=== PATIENT | female | born 1980 | race African-American/Black ===

== ENCOUNTER 2020-10-21 17:18 | Emergency (ER) | payer BC ==
[2020-10-21 17:55] LABS: #Eosinphils 0.1 thou/uL (0.0-0.7); #Lymphocytes 2.4 thou/uL (1.20-3.40); #Monocytes 0.6 thou/uL (0.11-0.59); #Neutrophils 5.1 thou/uL (1.40-6.50); %Basophils 0.4 % (0.0-1.0); %Eosinophils 1.4 % (0.0-10.0); %Lymphocytes 29.2 % (21.0-51.0); %Monocytes 7.1 % (0.0-10.0); %Neutrophils 61.9 % (42.0-75.0); Mean Corpuscular HGB CONC 33.7 g/dL (32.0-36.0); Mean Corpuscular Hemoglobin 30.6 pg (27.0-31.0); Mean Corpuscular Volume 90.9 fL (78.0-98.0); Mean Platelet Volume 7.4 fL (7.4-10.4); Platelet Count 493 thou/uL (130-400); RBC Distribution Width 11.5 % (11.5-14.5); Red Blood Cell (RBC) Count 4.58 mill/uL (4.20-5.40); White Blood Cell (WBC) Count 8.2 thou/uL (4.8-10.8)
[2020-10-21 18:03] LABS: Bilirubin Negative (Negative); Blood, Urine Trace (Negative); Clarity Clear (Clear); Glucose, Urine (Dipstick) Normal (Negative); Ketone, Urine Negative (Negative); Leukocyte 500 Leu/uL (Negative); Nitrite Negative (Negative); Protein, Urine (Dipstick) Negative (Neg-Trace); RBC/HPF 0-3 HPF (0-3); Specific Gravity, Urine 1.003 (1.002-1.036); Squamous Epithelial 0-3 HPF (0-3); Urobilinogen Normal mg/dL (Less than 2); WBC/HPF 21-50 HPF (0-3)
[2020-10-21 18:05] LABS: Bacteria/HPF 1+ HPF (None Seen)
[2020-10-21] MEDS ORDERED: Ketorolac Tromethamine 30 MG/ML VIAL ONE (18:06)
[2020-10-21 18:25] LABS: ALT (SGPT) 12 U/L (8-55); AST (SGOT) 14 U/L (5-34); Albumin 4.5 g/dL (3.5-5.0); Alkaline Phosphatase 78 U/L (40-110); Anion Gap 17 mmol/L (10-20); BUN (Urea Nitrogen) 11 mg/dL (7.0-18.7); Bilirubin, Total 0.8 mg/dL (0.2-1.2); Calc. Creatinine Clearance 0 mL/min (70-130); Calcium 9.8 mg/dL (7.8-10.44); Carbon Dioxide 20 mmol/L (22-29); Chloride 103 mmol/L (98-107); Globulin 3.3 g/dL (2.4-3.5); Glucose 93 mg/dL (70-105); Potassium 4.1 mmol/L (3.5-5.1); Protein, Total 7.8 g/dL (6.0-8.3); Sodium 136 mmol/L (136-145)
[2020-10-21 18:53] LABS: BHCG - Serum Negative (NEGATIVE); Pregs Control Background? CLEAR/WHITE (CLR/WHITE); Pregs Control Bar Appear? YES (CONTROL BAR)
== END 2020-10-21 18:40 | disposition home or self-care (01) ==
LOC: ERS 17:18
DX: N39.0 Urinary tract infection, site not specified (principal); B37.9 Candidiasis, unspecified; G35 Multiple sclerosis; Z79.899 Other long term (current) drug therapy
CPT/HCPCS: 36415; 80053; 81003; 81015; 84703; 85025; 87077; 87086; 87186; 96372; 99283; J1885

== ENCOUNTER 2020-11-13 15:41 | Observation (INO) | payer BC ==
[2020-11-13 18:02] VITALS: BMI 36.9
[2020-11-13] MEDS ORDERED: Acetaminophen 325 MG TAB PO PRN (18:35)
[2020-11-13] MEDS ORDERED: Calcium Carbonate 500 MG ChewTAB PO PRN (18:35)
[2020-11-13] MEDS ORDERED: Guaifenesin DM 100-10/5 ML UDCUP PO PRN (18:35)
[2020-11-13] MEDS ORDERED: Ondansetron ODT 4 MG TAB PO PRN (18:35)
[2020-11-13] MEDS ORDERED: Enoxaparin Sodium 40 MG/0.4 ML SYRINGE SC SCH (18:45)
[2020-11-13] MEDS: Ibuprofen 800 MG TAB PO PRN (20:49)
[2020-11-13] MEDS ORDERED: hydrOXYzine 25 MG TAB PO PRN (22:20)
[2020-11-13] MEDS ORDERED: tiZANidine HCl 4 MG TAB PO SCH (22:30)
[2020-11-13] MEDS: Benzonatate 100 MG CAP PO PRN (22:56)
[2020-11-14] MEDS: Amlodipine 5 MG TAB PO SCH ×2 (02:17→08:30)
[2020-11-14 06:26] LABS: Anion Gap 14 mmol/L (10-20); BUN (Urea Nitrogen) 10 mg/dL (7.0-18.7); Calc. Creatinine Clearance 175 mL/min (70-130); Calcium 9.1 mg/dL (7.8-10.44); Carbon Dioxide 23 mmol/L (22-29); Chloride 106 mmol/L (98-107); Glucose 177 mg/dL (70-105); Potassium 3.8 mmol/L (3.5-5.1); Sodium 139 mmol/L (136-145)
[2020-11-14] MEDS ORDERED: Dexamethasone 6 MG in Sodium Chloride 0.9% 50 ML IVPB SCH ×2 (07:00→09:00)
[2020-11-14] MEDS ORDERED: Enoxaparin Sodium 40 MG/0.4 ML SYRINGE SC SCH (07:00)
[2020-11-14] MEDS ORDERED: Dexamethasone 4 MG TAB PO SCH (08:00)
[2020-11-14] MEDS: Benzonatate 100 MG CAP PO PRN (08:30)
[2020-11-14] MEDS: Ibuprofen 800 MG TAB PO PRN (08:31)
[2020-11-14] MEDS ORDERED: Metoprolol Tartrate 25 MG TAB PO SCH (09:00)
[2020-11-14] MEDS ORDERED: tiZANidine HCl 4 MG TAB PO SCH (09:00)
[2020-11-14] MEDS ORDERED: Gabapentin 100 MG CAP PO SCH (09:00)
[2020-11-14 12:22] VITALS: BP 128/77; TEMP 98.3
[2020-11-14] MEDS ORDERED: FLU VACC QS2020-21(6MOS UP)/PF 60 MCG/0.5 ML SYRINGE IM ONE (18:30)
== END 2020-11-14 12:52 | disposition home or self-care (01) ==
LOC: T4-A 16:46
PROVIDERS: ADMIT Student in an Organized Health Care Education/Training Program; ATTEND Family Medicine
DX: U07.1 COVID-19 (principal); J12.82 Pneumonia due to coronavirus disease 2019; I10 Essential (primary) hypertension; G35 Multiple sclerosis; Z79.899 Other long term (current) drug therapy
CPT/HCPCS: 36415; 80048; J1650; J8540

== ENCOUNTER 2020-11-15 20:13 | Inpatient (IN) | payer BC ==
[~2020-11-15 20:13] MED LIST: Iopamidol 370 76% 100 ML VIAL ONE
[2020-11-15] MEDS ORDERED: Albuterol 200 PUFF (6.7GM INHALER) ONE (20:43)
[2020-11-15] MEDS ORDERED: Acetaminophen 500 MG TAB ONE (20:52)
[2020-11-15] MEDS ORDERED: Dexamethasone 4 mg/ml Vial ONE (20:52)
[2020-11-15 21:18] LABS: #Lymphocytes 0.8 thou/uL (1.20-3.40); #Monocytes 0.6 thou/uL (0.11-0.59); %Basophils 0.1 % (0.0-1.0); %Eosinophils 0.1 % (0.0-10.0); %Lymphocytes 8.4 % (21.0-51.0); %Monocytes 6.7 % (0.0-10.0); %Neutrophils 84.7 % (42.0-75.0); BHCG - Serum Negative (NEGATIVE); Hemoglobin 12.8 g/dL (12.0-16.0); Mean Corpuscular Hemoglobin 31.1 pg (27.0-31.0); Mean Corpuscular Volume 91.3 fL (78.0-98.0); Mean Platelet Volume 7.5 fL (7.4-10.4); Platelet Count 309 thou/uL (130-400); Pregs Control Background? CLEAR/WHITE (CLR/WHITE); Pregs Control Bar Appear? YES (CONTROL BAR); RBC Distribution Width 11.7 % (11.5-14.5); Red Blood Cell (RBC) Count 4.11 mill/uL (4.20-5.40); White Blood Cell (WBC) Count 9.4 thou/uL (4.8-10.8)
[2020-11-15 21:42] LABS: ALT (SGPT) 70 U/L (8-55); AST (SGOT) 45 U/L (5-34); Albumin 3.8 g/dL (3.5-5.0); Alkaline Phosphatase 93 U/L (40-110); Anion Gap 14 mmol/L (10-20); BUN (Urea Nitrogen) 14 mg/dL (7.0-18.7); Bilirubin, Total 0.6 mg/dL (0.2-1.2); Calc. Creatinine Clearance 0 mL/min (70-130); Calcium 8.9 mg/dL (7.8-10.44); Carbon Dioxide 25 mmol/L (22-29); Chloride 104 mmol/L (98-107); Globulin 3.5 g/dL (2.4-3.5); Glucose 103 mg/dL (70-105); Potassium 3.3 mmol/L (3.5-5.1); Protein, Total 7.3 g/dL (6.0-8.3); Sodium 140 mmol/L (136-145)
[2020-11-16 00:10] LABS: Lactic Acid 1.4 mmol/L (0.5-2.2)
[2020-11-16] MEDS ORDERED: Ondansetron ODT 4 MG TAB PO PRN (02:36)
[2020-11-16] MEDS ORDERED: GUAIFENESIN SF SOLN 200 MG/10 ML UDCUP PO PRN (02:41)
[2020-11-16] MEDS ORDERED: Ibuprofen 800 MG TAB PO PRN (02:41)
[2020-11-16] MEDS ORDERED: Benzonatate 100 MG CAP PO PRN (02:41)
[2020-11-16] MEDS ORDERED: Lactated Ringer's 1,000 ML IV SCH (03:00)
[2020-11-16] MEDS ORDERED: Acetaminophen 325 MG TAB ONE ×3 (05:01→15:41)
[2020-11-16] MEDS: Acetaminophen 325 MG TAB PO PRN ×3 (05:04→19:56)
[2020-11-16 05:27] LABS: Mean Corpuscular HGB CONC 33.8 g/dL (32.0-36.0); Mean Corpuscular Hemoglobin 30.6 pg (27.0-31.0); Mean Corpuscular Volume 90.7 fL (78.0-98.0); Mean Platelet Volume 7.2 fL (7.4-10.4); Platelet Count 314 thou/uL (130-400); RBC Distribution Width 11.7 % (11.5-14.5); Red Blood Cell (RBC) Count 3.91 mill/uL (4.20-5.40); White Blood Cell (WBC) Count 7.4 thou/uL (4.8-10.8)
[2020-11-16 05:35] LABS: ALT (SGPT) 59 U/L (8-55); AST (SGOT) 37 U/L (5-34); Albumin 3.6 g/dL (3.5-5.0); Alkaline Phosphatase 85 U/L (40-110); Anion Gap 14 mmol/L (10-20); BUN (Urea Nitrogen) 10 mg/dL (7.0-18.7); Bilirubin, Total 0.6 mg/dL (0.2-1.2); Calc. Creatinine Clearance 0 mL/min (70-130); Calcium 8.4 mg/dL (7.8-10.44); Carbon Dioxide 23 mmol/L (22-29); Chloride 107 mmol/L (98-107); Globulin 3.2 g/dL (2.4-3.5); Glucose 157 mg/dL (70-105); Potassium 3.9 mmol/L (3.5-5.1); Protein, Total 6.8 g/dL (6.0-8.3); Sodium 140 mmol/L (136-145)
[2020-11-16 05:47] LABS: Band 27 % (5-11); Lymphocytes 7 % (21-51); MDiff Complete? YES; Monocytes 2 % (0-10); Neutrophil 64 % (42-75); Platelet Morphology Comment Appears Adequate
[2020-11-16] MEDS ORDERED: Dexamethasone 4 mg/ml Vial SLOW IVP SCH ×2 (09:00→10:00)
[2020-11-16] MEDS ORDERED: Enoxaparin Sodium 40 MG/0.4 ML SYRINGE ONE (09:53)
[2020-11-16] MEDS ORDERED: Dexamethasone 4 mg/ml Vial ONE (09:53)
[2020-11-16] MEDS ORDERED: Amlodipine 5 MG TAB ONE (10:47)
[2020-11-16] MEDS ORDERED: Metoprolol Tartrate 25 MG TAB ONE (10:47)
[2020-11-16] MEDS: Amlodipine 5 MG TAB PO SCH (11:06)
[2020-11-16] MEDS: Metoprolol Tartrate 25 MG TAB PO SCH ×2 (11:07→19:56)
[2020-11-16] MEDS: Citalopram 20 MG TAB PO SCH (11:07)
[2020-11-16] MEDS: Enoxaparin Sodium 40 MG/0.4 ML SYRINGE SC SCH ×2 (11:08→19:56)
[2020-11-16] MEDS ORDERED: Ondansetron PF 4 MG/2 ML Vial ONE (14:04)
[2020-11-16] MEDS: Ondansetron PF 4 MG/2 ML Vial IVP PRN (14:16)
[2020-11-16] MEDS ORDERED: Docusate 100 MG CAP PO SCH (15:15)
[2020-11-16] MEDS ORDERED: Polyethylene Glycol 3350 17 GM Packet PO SCH (15:15)
[2020-11-16] MEDS ORDERED: Dexamethasone 1 MG TAB PO SCH (17:00)
[2020-11-16] MEDS ORDERED: Dexamethasone 4 MG TAB ONE (17:14)
[2020-11-16 19:10] VITALS: BMI 37.2
[2020-11-16] MEDS: Docusate 100 MG CAP PO SCH (19:32)
[2020-11-16] MEDS: Dexamethasone 4 MG TAB PO SCH (19:34)
[2020-11-16] MEDS: Gabapentin 300 MG CAP PO SCH (19:56)
[2020-11-16] MEDS: tiZANidine HCl 4 MG TAB PO SCH (19:56)
[2020-11-17] MEDS: Acetaminophen 325 MG TAB PO PRN (05:07)
[2020-11-17 06:41] LABS: #Lymphocytes 0.7 thou/uL (1.20-3.40); #Monocytes 0.6 thou/uL (0.11-0.59); #Neutrophils 7.1 thou/uL (1.40-6.50); %Eosinophils 0.1 % (0.0-10.0); %Lymphocytes 8.8 % (21.0-51.0); %Monocytes 7.4 % (0.0-10.0); %Neutrophils 83.8 % (42.0-75.0); Hemoglobin 12.7 g/dL (12.0-16.0); Mean Corpuscular HGB CONC 33.3 g/dL (32.0-36.0); Mean Corpuscular Hemoglobin 30.4 pg (27.0-31.0); Mean Corpuscular Volume 91.3 fL (78.0-98.0); Mean Platelet Volume 7.7 fL (7.4-10.4); Platelet Count 344 thou/uL (130-400); RBC Distribution Width 11.5 % (11.5-14.5); Red Blood Cell (RBC) Count 4.17 mill/uL (4.20-5.40); White Blood Cell (WBC) Count 8.5 thou/uL (4.8-10.8)
[2020-11-17 07:16] LABS: ALT (SGPT) 58 U/L (8-55); AST (SGOT) 44 U/L (5-34); Albumin 3.5 g/dL (3.5-5.0); Alkaline Phosphatase 89 U/L (40-110); Anion Gap 19 mmol/L (10-20); BUN (Urea Nitrogen) 13 mg/dL (7.0-18.7); Bilirubin, Total 0.6 mg/dL (0.2-1.2); Calc. Creatinine Clearance 172 mL/min (70-130); Calcium 8.8 mg/dL (7.8-10.44); Carbon Dioxide 21 mmol/L (22-29); Chloride 100 mmol/L (98-107); Globulin 3.9 g/dL (2.4-3.5); Glucose 127 mg/dL (70-105); Potassium 4.2 mmol/L (3.5-5.1); Protein, Total 7.4 g/dL (6.0-8.3); Sodium 136 mmol/L (136-145)
[2020-11-17] MEDS ORDERED: Simethicone Chewable 80 MG TAB PO PRN (08:11)
[2020-11-17] MEDS: Dexamethasone 4 MG TAB PO SCH ×2 (08:44→17:00)
[2020-11-17] MEDS: Enoxaparin Sodium 40 MG/0.4 ML SYRINGE SC SCH ×2 (08:45→21:11)
[2020-11-17] MEDS: Gabapentin 300 MG CAP PO SCH ×2 (08:45→21:11)
[2020-11-17] MEDS: Docusate 100 MG CAP PO SCH ×3 (08:45→21:17)
[2020-11-17] MEDS: Amlodipine 5 MG TAB PO SCH (08:45)
[2020-11-17] MEDS: Citalopram 20 MG TAB PO SCH (08:45)
[2020-11-17] MEDS: tiZANidine HCl 4 MG TAB PO SCH ×3 (08:46→21:11)
[2020-11-17] MEDS: Ondansetron PF 4 MG/2 ML Vial IVP PRN (08:46)
[2020-11-17] MEDS: Polyethylene Glycol 3350 17 GM Packet PO SCH (08:46)
[2020-11-17] MEDS: Metoprolol Tartrate 25 MG TAB PO SCH ×2 (08:46→21:12)
[2020-11-18] MEDS: Acetaminophen 325 MG TAB PO PRN (01:50)
[2020-11-18 07:20] LABS: #Lymphocytes 0.6 thou/uL (1.20-3.40); #Monocytes 0.9 thou/uL (0.11-0.59); #Neutrophils 5.7 thou/uL (1.40-6.50); %Basophils 0.3 % (0.0-1.0); %Eosinophils 0.1 % (0.0-10.0); %Lymphocytes 8.9 % (21.0-51.0); %Monocytes 12.1 % (0.0-10.0); %Neutrophils 78.7 % (42.0-75.0); Hemoglobin 12.4 g/dL (12.0-16.0); Mean Corpuscular Volume 91.2 fL (78.0-98.0); Mean Platelet Volume 7.5 fL (7.4-10.4); Platelet Count 377 thou/uL (130-400); RBC Distribution Width 11.6 % (11.5-14.5); White Blood Cell (WBC) Count 7.2 thou/uL (4.8-10.8)
[2020-11-18 07:49] LABS: ALT (SGPT) 41 U/L (8-55); AST (SGOT) 27 U/L (5-34); Albumin 3.3 g/dL (3.5-5.0); Alkaline Phosphatase 84 U/L (40-110); Anion Gap 15 mmol/L (10-20); BUN (Urea Nitrogen) 16 mg/dL (7.0-18.7); Bilirubin, Total 0.7 mg/dL (0.2-1.2); Calc. Creatinine Clearance 170 mL/min (70-130); Calcium 8.8 mg/dL (7.8-10.44); Carbon Dioxide 26 mmol/L (22-29); Chloride 99 mmol/L (98-107); Globulin 3.5 g/dL (2.4-3.5); Glucose 144 mg/dL (70-105); Protein, Total 6.8 g/dL (6.0-8.3); Sodium 136 mmol/L (136-145)
[2020-11-18] MEDS: Amlodipine 5 MG TAB PO SCH (08:50)
[2020-11-18] MEDS: tiZANidine HCl 4 MG TAB PO SCH ×3 (08:50→20:41)
[2020-11-18] MEDS: Metoprolol Tartrate 25 MG TAB PO SCH ×2 (08:51→20:42)
[2020-11-18] MEDS: Gabapentin 300 MG CAP PO SCH ×2 (08:51→20:41)
[2020-11-18] MEDS: Dexamethasone 4 MG TAB PO SCH ×2 (08:51→16:34)
[2020-11-18] MEDS: Docusate 100 MG CAP PO SCH ×2 (08:51→20:41)
[2020-11-18] MEDS: Citalopram 20 MG TAB PO SCH (08:51)
[2020-11-18] MEDS: Enoxaparin Sodium 40 MG/0.4 ML SYRINGE SC SCH (08:52)
[2020-11-18] MEDS: Polyethylene Glycol 3350 17 GM Packet PO SCH ×2 (08:52→09:12)
[2020-11-19] MEDS: Ondansetron PF 4 MG/2 ML Vial IVP PRN (05:08)
[2020-11-19 07:05] LABS: ALT (SGPT) 37 U/L (8-55); AST (SGOT) 21 U/L (5-34); Albumin 3.6 g/dL (3.5-5.0); Alkaline Phosphatase 90 U/L (40-110); Anion Gap 16 mmol/L (10-20); BUN (Urea Nitrogen) 14 mg/dL (7.0-18.7); Bilirubin, Total 0.7 mg/dL (0.2-1.2); Calc. Creatinine Clearance 197 mL/min (70-130); Calcium 9.1 mg/dL (7.8-10.44); Carbon Dioxide 26 mmol/L (22-29); Chloride 99 mmol/L (98-107); Globulin 3.5 g/dL (2.4-3.5); Glucose 151 mg/dL (70-105); Protein, Total 7.1 g/dL (6.0-8.3); Sodium 137 mmol/L (136-145)
[2020-11-19 08:21] LABS: Band 11 % (5-11); Hemoglobin 13.3 g/dL (12.0-16.0); Lymphocytes 15 % (21-51); MDiff Complete? YES; Mean Corpuscular HGB CONC 34.3 g/dL (32.0-36.0); Mean Corpuscular Hemoglobin 31.2 pg (27.0-31.0); Mean Platelet Volume 7.2 fL (7.4-10.4); Metamyelocyte 1 % (0-0); Monocytes 12 % (0-10); Neutrophil 61 % (42-75); Platelet Count 449 thou/uL (130-400); RBC Distribution Width 11.5 % (11.5-14.5); Red Blood Cell (RBC) Count 4.26 mill/uL (4.20-5.40); White Blood Cell (WBC) Count 7.4 thou/uL (4.8-10.8)
[2020-11-19] MEDS: Polyethylene Glycol 3350 17 GM Packet PO SCH (08:22)
[2020-11-19] MEDS: Citalopram 20 MG TAB PO SCH (08:22)
[2020-11-19] MEDS: Dexamethasone 4 MG TAB PO SCH ×2 (08:22→16:30)
[2020-11-19] MEDS: Amlodipine 5 MG TAB PO SCH (08:22)
[2020-11-19] MEDS: tiZANidine HCl 4 MG TAB PO SCH ×3 (08:22→20:13)
[2020-11-19] MEDS: Metoprolol Tartrate 25 MG TAB PO SCH ×2 (08:22→20:15)
[2020-11-19] MEDS: Gabapentin 300 MG CAP PO SCH ×2 (08:22→20:13)
[2020-11-19] MEDS: Docusate 100 MG CAP PO SCH ×2 (08:22→20:13)
[2020-11-19] MEDS: Enoxaparin Sodium 40 MG/0.4 ML SYRINGE SC SCH (08:23)
[2020-11-19] MEDS: Acetaminophen 325 MG TAB PO PRN (19:53)
[2020-11-20 07:11] LABS: #Basophils 0.1 thou/uL (0.0-0.2); #Lymphocytes 1.1 thou/uL (1.20-3.40); #Monocytes 0.9 thou/uL (0.11-0.59); #Neutrophils 6.7 thou/uL (1.40-6.50); %Basophils 0.6 % (0.0-1.0); %Eosinophils 0.2 % (0.0-10.0); %Lymphocytes 12.1 % (21.0-51.0); %Monocytes 10.1 % (0.0-10.0); %Neutrophils 76.9 % (42.0-75.0); Hemoglobin 13.2 g/dL (12.0-16.0); Mean Corpuscular HGB CONC 34.3 g/dL (32.0-36.0); Mean Corpuscular Volume 90.2 fL (78.0-98.0); Mean Platelet Volume 6.9 fL (7.4-10.4); Platelet Count 539 thou/uL (130-400); RBC Distribution Width 11.6 % (11.5-14.5); Red Blood Cell (RBC) Count 4.28 mill/uL (4.20-5.40); White Blood Cell (WBC) Count 8.7 thou/uL (4.8-10.8)
[2020-11-20 07:30] LABS: ALT (SGPT) 57 U/L (8-55); AST (SGOT) 26 U/L (5-34); Albumin 3.6 g/dL (3.5-5.0); Alkaline Phosphatase 86 U/L (40-110); Anion Gap 13 mmol/L (10-20); BUN (Urea Nitrogen) 16 mg/dL (7.0-18.7); Bilirubin, Total 0.9 mg/dL (0.2-1.2); Calc. Creatinine Clearance 186 mL/min (70-130); Calcium 9.1 mg/dL (7.8-10.44); Carbon Dioxide 28 mmol/L (22-29); Chloride 98 mmol/L (98-107); Globulin 3.3 g/dL (2.4-3.5); Glucose 161 mg/dL (70-105); Protein, Total 6.9 g/dL (6.0-8.3); Sodium 135 mmol/L (136-145)
[2020-11-20] MEDS: tiZANidine HCl 4 MG TAB PO SCH ×3 (08:41→21:30)
[2020-11-20] MEDS: Docusate 100 MG CAP PO SCH ×2 (08:41→21:31)
[2020-11-20] MEDS: Citalopram 20 MG TAB PO SCH (08:41)
[2020-11-20] MEDS: Amlodipine 5 MG TAB PO SCH (08:41)
[2020-11-20] MEDS: Enoxaparin Sodium 40 MG/0.4 ML SYRINGE SC SCH (08:41)
[2020-11-20] MEDS: Metoprolol Tartrate 25 MG TAB PO SCH ×2 (08:42→21:32)
[2020-11-20] MEDS: Gabapentin 300 MG CAP PO SCH ×2 (08:42→21:30)
[2020-11-20] MEDS: Dexamethasone 4 MG TAB PO SCH ×2 (08:42→16:38)
[2020-11-20] MEDS: Polyethylene Glycol 3350 17 GM Packet PO SCH (08:43)
[2020-11-21 06:22] LABS: #Basophils 0.1 thou/uL (0.0-0.2); #Lymphocytes 0.8 thou/uL (1.20-3.40); #Monocytes 0.6 thou/uL (0.11-0.59); #Neutrophils 5.2 thou/uL (1.40-6.50); %Basophils 1.1 % (0.0-1.0); %Eosinophils 0.3 % (0.0-10.0); %Lymphocytes 11.5 % (21.0-51.0); %Monocytes 9.5 % (0.0-10.0); %Neutrophils 77.6 % (42.0-75.0); Hemoglobin 13.3 g/dL (12.0-16.0); Mean Corpuscular HGB CONC 34.4 g/dL (32.0-36.0); Mean Corpuscular Hemoglobin 31.2 pg (27.0-31.0); Mean Corpuscular Volume 90.7 fL (78.0-98.0); Platelet Count 540 thou/uL (130-400); RBC Distribution Width 11.6 % (11.5-14.5); Red Blood Cell (RBC) Count 4.25 mill/uL (4.20-5.40); White Blood Cell (WBC) Count 6.7 thou/uL (4.8-10.8)
[2020-11-21 06:46] LABS: ALT (SGPT) 45 U/L (8-55); AST (SGOT) 15 U/L (5-34); Albumin 3.6 g/dL (3.5-5.0); Alkaline Phosphatase 81 U/L (40-110); Anion Gap 14 mmol/L (10-20); BUN (Urea Nitrogen) 16 mg/dL (7.0-18.7); Bilirubin, Total 0.8 mg/dL (0.2-1.2); Calc. Creatinine Clearance 184 mL/min (70-130); Calcium 9.1 mg/dL (7.8-10.44); Carbon Dioxide 27 mmol/L (22-29); Chloride 98 mmol/L (98-107); Globulin 3.2 g/dL (2.4-3.5); Glucose 139 mg/dL (70-105); Potassium 4.2 mmol/L (3.5-5.1); Protein, Total 6.8 g/dL (6.0-8.3); Sodium 135 mmol/L (136-145)
[2020-11-21] MEDS: tiZANidine HCl 4 MG TAB PO SCH ×3 (08:25→20:27)
[2020-11-21] MEDS: Dexamethasone 4 MG TAB PO SCH ×2 (08:25→16:37)
[2020-11-21] MEDS: Amlodipine 5 MG TAB PO SCH (08:26)
[2020-11-21] MEDS: Citalopram 20 MG TAB PO SCH (08:26)
[2020-11-21] MEDS: Enoxaparin Sodium 40 MG/0.4 ML SYRINGE SC SCH (08:31)
[2020-11-21] MEDS: Gabapentin 300 MG CAP PO SCH ×2 (08:31→20:27)
[2020-11-21] MEDS: Metoprolol Tartrate 25 MG TAB PO SCH ×2 (08:31→20:27)
[2020-11-21] MEDS: guaiFENesin ER 600 MG TAB PO SCH ×2 (08:31→20:27)
[2020-11-21] MEDS: Docusate 100 MG CAP PO SCH ×2 (08:31→20:28)
[2020-11-22 09:00] VITALS: BP 116/80; TEMP 98
[2020-11-22] MEDS: Dexamethasone 4 MG TAB PO SCH ×2 (09:44→16:22)
[2020-11-22] MEDS: Amlodipine 5 MG TAB PO SCH (09:44)
[2020-11-22] MEDS: tiZANidine HCl 4 MG TAB PO SCH ×2 (09:44→15:57)
[2020-11-22] MEDS: Citalopram 20 MG TAB PO SCH (09:44)
[2020-11-22] MEDS: Docusate 100 MG CAP PO SCH (09:44)
[2020-11-22] MEDS: Gabapentin 300 MG CAP PO SCH (09:46)
[2020-11-22] MEDS: Enoxaparin Sodium 40 MG/0.4 ML SYRINGE SC SCH (09:46)
[2020-11-22] MEDS: guaiFENesin ER 600 MG TAB PO SCH (09:46)
[2020-11-22] MEDS: Metoprolol Tartrate 25 MG TAB PO SCH (09:46)
[2020-11-22] MEDS: Acetaminophen 325 MG TAB PO PRN (09:51)
[2020-11-22 09:52] LABS: ALT (SGPT) 38 U/L (8-55); AST (SGOT) 12 U/L (5-34); Albumin 4.1 g/dL (3.5-5.0); Alkaline Phosphatase 91 U/L (40-110); Anion Gap 15 mmol/L (10-20); BUN (Urea Nitrogen) 15 mg/dL (7.0-18.7); Bilirubin, Total 0.9 mg/dL (0.2-1.2); Calc. Creatinine Clearance 170 mL/min (70-130); Calcium 9.7 mg/dL (7.8-10.44); Carbon Dioxide 26 mmol/L (22-29); Chloride 99 mmol/L (98-107); Globulin 3.5 g/dL (2.4-3.5); Glucose 142 mg/dL (70-105); Potassium 4.2 mmol/L (3.5-5.1); Protein, Total 7.6 g/dL (6.0-8.3); Sodium 136 mmol/L (136-145)
[2020-11-22 10:19] LABS: Hemoglobin 14.6 g/dL (12.0-16.0); Mean Corpuscular HGB CONC 34.4 g/dL (32.0-36.0); Mean Corpuscular Hemoglobin 30.9 pg (27.0-31.0); Mean Corpuscular Volume 89.9 fL (78.0-98.0); Mean Platelet Volume 6.7 fL (7.4-10.4); Platelet Count 756 thou/uL (130-400); RBC Distribution Width 11.8 % (11.5-14.5); Red Blood Cell (RBC) Count 4.73 mill/uL (4.20-5.40); White Blood Cell (WBC) Count 15.8 thou/uL (4.8-10.8)
[2020-11-22 10:50] LABS: Lymphocytes 15 % (21-51); MDiff Complete? YES; Metamyelocyte 3 % (0-0); Monocytes 4 % (0-10); Myelocyte 2 % (0-0); Neutrophil 76 % (42-75); Platelet Morphology Comment Appears Increased; RBC Morphology Normal
== END 2020-11-22 16:46 | disposition home or self-care (01) | DRG 871 ==
LOC: ERS 20:13 → ERHOLD 23:20 → T4-A 11-16 18:47
PROVIDERS: ADMIT Emergency Medicine; ATTEND Family Medicine
PROC: 8E0ZXY6 Isolation (ICD-10-PCS; principal; 2020-11-16)
DX: A41.89 Other specified sepsis (principal); U07.1 COVID-19; J96.01 Acute respiratory failure with hypoxia; J12.82 Pneumonia due to coronavirus disease 2019; F33.9 Major depressive disorder, recurrent, unspecified; I10 Essential (primary) hypertension; F41.9 Anxiety disorder, unspecified; G35 Multiple sclerosis; K59.00 Constipation, unspecified; Z79.899 Other long term (current) drug therapy
CPT/HCPCS: 36415; 71275; 80048; 80053; 83605; 83880; 84145; 84484; 84703; 85025; 93005; 96372; 96374; G0378; J1100; J1650; J2405; J7620; J8540; Q0162; Q9967

== ENCOUNTER 2020-12-29 20:05 | Observation (INO) | payer BC ==
[~2020-12-29 20:05] MED LIST changes: -Iopamidol 370 76% 100 ML VIAL ONE; +Iopamidol-370 76% 500 ML 1 ML ONE
[2020-12-29] MEDS ORDERED: Promethazine HCl 25 MG/ML VIAL ONE (20:20)
[2020-12-29] MEDS ORDERED: Lidocaine Viscous Sol 2% 15 ml UD Cup ONE (20:27)
[2020-12-29] MEDS ORDERED: Mag-Al 1200 mg/1200 mg/30 ML UDCUP ONE (20:27)
[2020-12-29 20:33] LABS: #Basophils 0.1 thou/uL (0.0-0.2); #Lymphocytes 2.9 thou/uL (1.20-3.40); #Monocytes 0.9 thou/uL (0.11-0.59); #Neutrophils 4.8 thou/uL (1.40-6.50); %Eosinophils 0.4 % (0.0-10.0); %Lymphocytes 33.5 % (21.0-51.0); %Monocytes 10.7 % (0.0-10.0); %Neutrophils 54.5 % (42.0-75.0); Hemoglobin 14.1 g/dL (12.0-16.0); Mean Corpuscular HGB CONC 34.6 g/dL (32.0-36.0); Mean Corpuscular Hemoglobin 31.6 pg (27.0-31.0); Mean Corpuscular Volume 91.2 fL (78.0-98.0); Mean Platelet Volume 8.2 fL (7.4-10.4); Platelet Count 447 thou/uL (130-400); RBC Distribution Width 13.8 % (11.5-14.5); Red Blood Cell (RBC) Count 4.46 mill/uL (4.20-5.40); White Blood Cell (WBC) Count 8.7 thou/uL (4.8-10.8)
[2020-12-29 20:39] LABS: BHCG - Serum Negative (NEGATIVE); Pregs Control Background? CLEAR/WHITE (CLR/WHITE); Pregs Control Bar Appear? YES (CONTROL BAR)
[2020-12-29 21:13] LABS: ALT (SGPT) 27 U/L (8-55); AST (SGOT) 18 U/L (5-34); Albumin 4.1 g/dL (3.5-5.0); Alkaline Phosphatase 131 U/L (40-110); Anion Gap 25 mmol/L (10-20); BUN (Urea Nitrogen) 6 mg/dL (7.0-18.7); Calc. Creatinine Clearance 0 mL/min (70-130); Calcium 10.8 mg/dL (7.8-10.44); Carbon Dioxide 19 mmol/L (22-29); Chloride 96 mmol/L (98-107); Globulin 3.3 g/dL (2.4-3.5); Glucose 434 mg/dL (70-105); Lipase 21 U/L (8-78); Potassium 3.5 mmol/L (3.5-5.1); Protein, Total 7.4 g/dL (6.0-8.3); Sodium 136 mmol/L (136-145)
[2020-12-29 21:44] LABS: Actual Bicarbonate (HCO3v) 23 mEq/L (22-28); Analyzer IN Cardio ER; Base Excess -0.6 mEq/L (-2.0 to +3.0); Calcium, Ionized (venous) 1.12 mmol/L (1.16-1.32); Chloride (VBG) 97 mmol/L (98-106); Hemoglobin (Hb) 14.5 g/dL (11.7-15.5); pH (venous) 7.42 (7.32-7.43)
[2020-12-29] MEDS ORDERED: Ondansetron PF 4 MG/2 ML Vial ONE (23:27)
[2020-12-29] MEDS ORDERED: Dextrose 5% in Water 1,000 ML IV PRN (23:46)
[2020-12-29] MEDS ORDERED: HumaLOG 300 UNITS/3 ML VIAL SC PRN ×2 (23:46)
[2020-12-29] MEDS ORDERED: Ondansetron ODT 4 MG TAB PO PRN (23:46)
[2020-12-29] MEDS ORDERED: Acetaminophen 325 MG TAB PO PRN (23:46)
[2020-12-29] MEDS ORDERED: Dextrose 50% Abboject 50 ML SYRINGE SLOW IVP PRN (23:46)
[2020-12-29] MEDS ORDERED: Ondansetron PF 4 MG/2 ML Vial IVP PRN (23:46)
[2020-12-29 23:52] LABS: Bilirubin Negative (Negative); Blood, Urine Negative (Negative); Clarity Clear (Clear); Glucose, Urine (Dipstick) Greater than 1000 mg/dL (Negative); Ketone, Urine 40 mg/dL (Negative); Leukocyte Negative Leu/uL (Negative); Nitrite Negative (Negative); Protein, Urine (Dipstick) Negative (Neg-Trace); Urobilinogen Normal mg/dL (Less than 2); pH, Urine 6.5 (5.0-9.0)
[2020-12-29 23:53] LABS: Specific Gravity, Urine 1.054 (1.002-1.036)
[2020-12-30] MEDS ORDERED: Insulin Regular 300 UNITS/3 ML VIAL ONE (00:14)
[2020-12-30] MEDS ORDERED: Haloperidol Lactate 5 MG/ML VIAL ONE (00:14)
[2020-12-30] MEDS ORDERED: Calcium Carbonate 500 MG ChewTAB PO PRN (00:14)
[2020-12-30] MEDS ORDERED: Haloperidol Lactate 5 MG/ML VIAL IM SCH (00:15)
[2020-12-30] MEDS ORDERED: Haloperidol Lactate 5 MG/ML VIAL SLOW IVP SCH (00:15)
[2020-12-30] MEDS ORDERED: Pantoprazole 40 MG VIAL IVP SCH ×2 (00:15→09:00)
[2020-12-30 00:21] LABS: Hemoglobin A1c 12.5 % (4.0-6.0)
[2020-12-30] MEDS ORDERED: Insulin Regular 300 UNITS/3 ML VIAL IVP SCH (00:30)
[2020-12-30 00:36] LABS: Amphetamine Not Detected (NotDetected); Barbiturates Screen Not Detected (NotDetected); Benzodiazepine Screen Not Detected (NotDetected); Cocaine Metabolite Screen Not Detected (NotDetected); Medtox Control Line Valid? VALID (VALID); Medtox Reader # READER 4; Methadone Not Detected (NotDetected); Methamphetamine Not Detected (NotDetected); Opiate Screen Not Detected (NotDetected); Oxycodone Screen Not Detected (NotDetected); Phencyclidine (PCP) Not Detected (NotDetected); THC/Cannabinoid Screen Not Detected (NotDetected); Tricyclic Screen Not Detected (NotDetected)
[2020-12-30] MEDS ORDERED: Pantoprazole 40 MG VIAL ONE (00:49)
[2020-12-30 00:52] LABS: Anion Gap 18 mmol/L (10-20); BUN (Urea Nitrogen) 4 mg/dL (7.0-18.7); Calc. Creatinine Clearance 0 mL/min (70-130); Calcium 9.3 mg/dL (7.8-10.44); Carbon Dioxide 22 mmol/L (22-29); Chloride 102 mmol/L (98-107); Glucose 331 mg/dL (70-105); Potassium 3.8 mmol/L (3.5-5.1); Sodium 138 mmol/L (136-145)
[2020-12-30] MEDS: Lactated Ringer's 1,000 ML IV SCH ×2 (01:45→10:18)
[2020-12-30 02:12] VITALS: BMI 33.2
[2020-12-30 03:49] LABS: SARS-CoV-2 NAA Rapid Test Not Detected (NotDetected)
[2020-12-30 06:07] LABS: Anion Gap 13 mmol/L (10-20); BUN (Urea Nitrogen) Less than 4 mg/dL (7.0-18.7); Calc. Creatinine Clearance 192 mL/min (70-130); Calcium 8.7 mg/dL (7.8-10.44); Carbon Dioxide 25 mmol/L (22-29); Chloride 103 mmol/L (98-107); Glucose 185 mg/dL (70-105); Potassium 3.1 mmol/L (3.5-5.1); Sodium 138 mmol/L (136-145)
[2020-12-30 06:08] LABS: #Lymphocytes 1.3 thou/uL (1.20-3.40); #Monocytes 0.8 thou/uL (0.11-0.59); #Neutrophils 4.5 thou/uL (1.40-6.50); %Basophils 0.6 % (0.0-1.0); %Eosinophils 0.6 % (0.0-10.0); %Lymphocytes 19.7 % (21.0-51.0); %Monocytes 11.5 % (0.0-10.0); %Neutrophils 67.6 % (42.0-75.0); Hemoglobin 11.5 g/dL (12.0-16.0); Mean Corpuscular HGB CONC 32.7 g/dL (32.0-36.0); Mean Corpuscular Hemoglobin 30.1 pg (27.0-31.0); Mean Corpuscular Volume 92.2 fL (78.0-98.0); Mean Platelet Volume 8.5 fL (7.4-10.4); Platelet Count 321 thou/uL (130-400); RBC Distribution Width 13.9 % (11.5-14.5); Red Blood Cell (RBC) Count 3.82 mill/uL (4.20-5.40); White Blood Cell (WBC) Count 6.6 thou/uL (4.8-10.8)
[2020-12-30] MEDS ORDERED: Potassium Chloride 20 MEQ TAB PO SCH (07:30)
[2020-12-30] MEDS ORDERED: metFORMIN 500 MG TAB PO SCH ×2 (09:30→17:00)
[2020-12-30] MEDS ORDERED: Lisinopril 2.5 MG TAB PO SCH (09:30)
[2020-12-30] MEDS ORDERED: Amlodipine 5 MG TAB ONE (09:52)
[2020-12-30] MEDS ORDERED: Potassium Chloride 20 MEQ TAB ONE (09:52)
[2020-12-30] MEDS ORDERED: Metoprolol Tartrate 25 MG TAB ONE (09:52)
[2020-12-30] MEDS: Amlodipine 5 MG TAB PO SCH (10:01)
[2020-12-30] MEDS: Gabapentin 300 MG CAP PO SCH ×3 (10:03→20:29)
[2020-12-30] MEDS: Citalopram 20 MG TAB PO SCH (10:03)
[2020-12-30] MEDS: tiZANidine HCl 4 MG TAB PO SCH ×2 (10:04→20:29)
[2020-12-30] MEDS: Metoprolol Tartrate 25 MG TAB PO SCH ×2 (10:04→20:29)
[2020-12-31 07:48] LABS: Anion Gap 11 mmol/L (10-20); BUN (Urea Nitrogen) 4 mg/dL (7.0-18.7); Calc. Creatinine Clearance 207 mL/min (70-130); Calcium 8.2 mg/dL (7.8-10.44); Carbon Dioxide 25 mmol/L (22-29); Chloride 102 mmol/L (98-107); Glucose 265 mg/dL (70-105); Potassium 3.3 mmol/L (3.5-5.1); Sodium 135 mmol/L (136-145)
[2020-12-31] MEDS ORDERED: metFORMIN 500 MG TAB PO SCH (08:00)
[2020-12-31] MEDS ORDERED: Potassium Chloride 20 MEQ TAB PO SCH (08:00)
[2020-12-31] MEDS: Metoprolol Tartrate 25 MG TAB PO SCH (08:13)
[2020-12-31] MEDS: Citalopram 20 MG TAB PO SCH (08:13)
[2020-12-31] MEDS: Gabapentin 300 MG CAP PO SCH (08:14)
[2020-12-31] MEDS: tiZANidine HCl 4 MG TAB PO SCH (08:15)
[2020-12-31] MEDS: Amlodipine 5 MG TAB PO SCH (08:15)
[2020-12-31] MEDS ORDERED: Lisinopril 2.5 MG TAB PO SCH ×2 (09:00)
[2020-12-31 11:28] VITALS: BP 97/68; TEMP 98.6
== END 2020-12-31 11:46 | disposition home or self-care (01) ==
LOC: ERS 20:05 → ERHOLD 23:35 → T4-B 12-30 00:23
PROVIDERS: ADMIT Emergency Medicine; ATTEND Emergency Medicine
DX: R11.2 Nausea with vomiting, unspecified (principal); A08.4 Viral intestinal infection, unspecified; E11.65 Type 2 diabetes mellitus with hyperglycemia; G35 Multiple sclerosis; I10 Essential (primary) hypertension; K21.9 Gastro-esophageal reflux disease without esophagitis; K59.09 Other constipation; K80.20 Calculus of gallbladder without cholecystitis without obstruction; E28.2 Polycystic ovarian syndrome; Z79.899 Other long term (current) drug therapy; Z20.822 Contact with and (suspected) exposure to COVID-19
CPT/HCPCS: 0240U; 36415; 36416; 71045; 74177; 80048; 80053; 80306; 81003; 82010; 82805; 83036; 83690; 84484; 84703; 85025; 93005; 96365; 96375; 96376; C9113; G0378; J1630; J1815; J2405; J2550; Q9967

== ENCOUNTER 2022-03-27 20:10 | Inpatient (IN) | payer BC ==
[~2022-03-27 20:10] MED LIST changes: -Iopamidol-370 76% 500 ML 1 ML ONE; +Magnevist 469MG/ML 20 ML VIAL ONE
[2022-03-27 21:00] LABS: #Lymphocytes 2.5 thou/uL (1.20-3.40); #Monocytes 1.1 thou/uL (0.11-0.59); #Neutrophils 11.6 thou/uL (1.40-6.50); %Eosinophils 0.2 % (0.0-10.0); %Lymphocytes 16.2 % (21.0-51.0); %Monocytes 7.1 % (0.0-10.0); %Neutrophils 76.6 % (42.0-75.0); Hemoglobin 12.8 g/dL (12.0-16.0); Mean Corpuscular HGB CONC 33.8 g/dL (32.0-36.0); Mean Corpuscular Hemoglobin 31.6 pg (27.0-31.0); Mean Corpuscular Volume 93.6 fL (78.0-98.0); Mean Platelet Volume 7.7 fL (7.4-10.4); Platelet Count 403 thou/uL (130-400); RBC Distribution Width 11.2 % (11.5-14.5); Red Blood Cell (RBC) Count 4.07 mill/uL (4.20-5.40); White Blood Cell (WBC) Count 15.2 thou/uL (4.8-10.8)
[2022-03-27] MEDS ORDERED: methylPREDNISolone Sod Succ 1 GM in Sodium Chloride 0.9% 250 ML 250 ML IVPB SCH (21:15)
[2022-03-27 21:18] LABS: Bacteria/HPF None Seen HPF (None Seen); Bilirubin Negative (Negative); Blood, Urine 2+ (Negative); Clarity Clear (Clear); Glucose, Urine (Dipstick) Normal (Negative); Ketone, Urine Negative (Negative); Leukocyte Negative Leu/uL (Negative); Nitrite Negative (Negative); Protein, Urine (Dipstick) Negative (Neg-Trace); RBC/HPF 0-3 HPF (0-3); Specific Gravity, Urine 1.013 (1.002-1.036); Squamous Epithelial None Seen HPF (0-3); Urobilinogen Normal mg/dL (Less than 2); WBC/HPF 0-3 HPF (0-3); pH, Urine 5.5 (5.0-9.0)
[2022-03-27 21:22] LABS: ALT (SGPT) 8 U/L (8-55); AST (SGOT) 11 U/L (5-34); Albumin 4.4 g/dL (3.5-5.0); Alkaline Phosphatase 56 U/L (40-110); Anion Gap 14 mmol/L (10-20); BUN (Urea Nitrogen) 15 mg/dL (7.0-18.7); Calc. Creatinine Clearance 0 mL/min (70-130); Carbon Dioxide 23 mmol/L (22-29); Chloride 105 mmol/L (98-107); Estimated GFR 96; Globulin 2.8 g/dL (2.4-3.5); Glucose 95 mg/dL (70-105); Protein, Total 7.2 g/dL (6.0-8.3); Sodium 138 mmol/L (136-145)
[2022-03-27 21:34] LABS: BHCG - Serum Negative (NEGATIVE); Pregs Control Background? CLEAR/WHITE (CLR/WHITE); Pregs Control Bar Appear? YES (CONTROL BAR)
[2022-03-27 23:49] VITALS: BMI 31.4
[2022-03-27] MEDS ORDERED: Dextrose 50% Abboject 50 ML SYRINGE SLOW IVP PRN (23:57)
[2022-03-27] MEDS ORDERED: Dextrose 5% in Water 1,000 ML IV PRN (23:57)
[2022-03-27] MEDS ORDERED: HumaLOG 300 UNITS/3 ML VIAL SC PRN (23:57)
[2022-03-28] MEDS ORDERED: hydrOXYzine 25 MG TAB PO PRN ×3 (01:36→02:15)
[2022-03-28] MEDS ORDERED: tiZANidine HCl 4 MG TAB PO SCH ×2 (02:15→09:00)
[2022-03-28] MEDS ORDERED: Gabapentin 300 MG CAP PO SCH ×3 (02:15→09:00)
[2022-03-28] MEDS ORDERED: Amlodipine 5 MG TAB PO SCH (09:00)
[2022-03-28] MEDS: Gabapentin 300 MG CAP PO SCH ×3 (09:39→20:28)
[2022-03-28] MEDS: Lisinopril 2.5 MG TAB PO SCH (09:39)
[2022-03-28] MEDS: metFORMIN 500 MG TAB PO SCH ×2 (09:40→17:02)
[2022-03-28] MEDS: tiZANidine HCl 4 MG TAB PO SCH ×2 (09:41→20:28)
[2022-03-28] MEDS: Amlodipine 5 MG TAB PO SCH (09:41)
[2022-03-28] MEDS: Acetaminophen 325 MG TAB PO PRN (09:41)
[2022-03-28] MEDS: DULoxetine 30 MG CAP PO SCH (09:41)
[2022-03-28] MEDS: Modafinil 100 MG TAB PO SCH (09:41)
[2022-03-28] MEDS: Metoprolol Tartrate 25 MG TAB PO SCH ×2 (09:41→20:28)
[2022-03-28 09:53] LABS: #Lymphocytes 0.9 thou/uL (1.20-3.40); #Neutrophils 10.9 thou/uL (1.40-6.50); %Basophils 0.1 % (0.0-1.0); %Lymphocytes 7.4 % (21.0-51.0); %Monocytes 0.2 % (0.0-10.0); %Neutrophils 92.3 % (42.0-75.0); Hemoglobin 13.1 g/dL (12.0-16.0); Mean Corpuscular HGB CONC 33.5 g/dL (32.0-36.0); Mean Corpuscular Hemoglobin 31.5 pg (27.0-31.0); Mean Corpuscular Volume 93.8 fL (78.0-98.0); Mean Platelet Volume 7.9 fL (7.4-10.4); Platelet Count 410 thou/uL (130-400); RBC Distribution Width 11.1 % (11.5-14.5); Red Blood Cell (RBC) Count 4.16 mill/uL (4.20-5.40); White Blood Cell (WBC) Count 11.8 thou/uL (4.8-10.8)
[2022-03-28 10:04] LABS: Anion Gap 15 mmol/L (10-20); BUN (Urea Nitrogen) 12 mg/dL (7.0-18.7); Calc. Creatinine Clearance 152 mL/min (70-130); Calcium 9.6 mg/dL (7.8-10.44); Carbon Dioxide 21 mmol/L (22-29); Chloride 106 mmol/L (98-107); Estimated GFR 102; Glucose 200 mg/dL (70-105); Sodium 138 mmol/L (136-145)
[2022-03-28] MEDS: HumaLOG 300 UNITS/3 ML VIAL SC PRN ×2 (11:48→17:02)
[2022-03-28] MEDS ORDERED: methylPREDNISolone Sod Succ 1 GM in Sodium Chloride 0.9% 250 ML 250 ML IVPB SCH (21:00)
[2022-03-29] MEDS: Acetaminophen 325 MG TAB PO PRN (04:53)
[2022-03-29 07:03] LABS: #Lymphocytes 0.9 thou/uL (1.20-3.40); #Monocytes 0.1 thou/uL (0.11-0.59); #Neutrophils 15.4 thou/uL (1.40-6.50); %Basophils 0.1 % (0.0-1.0); %Eosinophils 0.1 % (0.0-10.0); %Lymphocytes 5.4 % (21.0-51.0); %Monocytes 0.7 % (0.0-10.0); %Neutrophils 93.9 % (42.0-75.0); Hemoglobin 12.9 g/dL (12.0-16.0); Mean Corpuscular HGB CONC 33.6 g/dL (32.0-36.0); Mean Corpuscular Hemoglobin 31.6 pg (27.0-31.0); Mean Platelet Volume 7.4 fL (7.4-10.4); Platelet Count 406 thou/uL (130-400); RBC Distribution Width 11.1 % (11.5-14.5); Red Blood Cell (RBC) Count 4.09 mill/uL (4.20-5.40); White Blood Cell (WBC) Count 16.4 thou/uL (4.8-10.8)
[2022-03-29 07:22] LABS: Anion Gap 15 mmol/L (10-20); BUN (Urea Nitrogen) 13 mg/dL (7.0-18.7); Calc. Creatinine Clearance 156 mL/min (70-130); Calcium 9.3 mg/dL (7.8-10.44); Carbon Dioxide 24 mmol/L (22-29); Chloride 103 mmol/L (98-107); Estimated GFR 105; Glucose 168 mg/dL (70-105); Sodium 138 mmol/L (136-145)
[2022-03-29] MEDS: DULoxetine 30 MG CAP PO SCH (08:53)
[2022-03-29] MEDS: metFORMIN 500 MG TAB PO SCH ×2 (08:54→17:55)
[2022-03-29] MEDS: tiZANidine HCl 4 MG TAB PO SCH (08:54)
[2022-03-29] MEDS: Metoprolol Tartrate 25 MG TAB PO SCH (08:54)
[2022-03-29] MEDS: Amlodipine 5 MG TAB PO SCH (08:54)
[2022-03-29] MEDS: Lisinopril 2.5 MG TAB PO SCH (08:54)
[2022-03-29] MEDS: Modafinil 100 MG TAB PO SCH (08:55)
[2022-03-29] MEDS: Gabapentin 300 MG CAP PO SCH ×2 (08:55→15:28)
[2022-03-29] MEDS: HumaLOG 300 UNITS/3 ML VIAL SC PRN (11:27)
[2022-03-29] MEDS ORDERED: methylPREDNISolone Sod Succ 1 GM in Sodium Chloride 0.9% 250 ML 250 ML IVPB SCH (17:00)
[2022-03-30 05:20] LABS: #Lymphocytes 0.8 thou/uL (1.20-3.40); #Monocytes 0.2 thou/uL (0.11-0.59); #Neutrophils 11.7 thou/uL (1.40-6.50); %Basophils 0.1 % (0.0-1.0); %Eosinophils 0.1 % (0.0-10.0); %Lymphocytes 6.1 % (21.0-51.0); %Monocytes 1.9 % (0.0-10.0); %Neutrophils 91.8 % (42.0-75.0); Hemoglobin 12.6 g/dL (12.0-16.0); Mean Corpuscular HGB CONC 33.3 g/dL (32.0-36.0); Mean Corpuscular Hemoglobin 31.3 pg (27.0-31.0); Mean Corpuscular Volume 93.7 fL (78.0-98.0); Mean Platelet Volume 7.5 fL (7.4-10.4); Platelet Count 398 thou/uL (130-400); RBC Distribution Width 11.2 % (11.5-14.5); Red Blood Cell (RBC) Count 4.03 mill/uL (4.20-5.40); White Blood Cell (WBC) Count 12.7 thou/uL (4.8-10.8)
[2022-03-30 05:43] LABS: Anion Gap 15 mmol/L (10-20); BUN (Urea Nitrogen) 16 mg/dL (7.0-18.7); Calc. Creatinine Clearance 158 mL/min (70-130); Carbon Dioxide 24 mmol/L (22-29); Chloride 103 mmol/L (98-107); Estimated GFR 107; Glucose 168 mg/dL (70-105); Potassium 3.8 mmol/L (3.5-5.1); Sodium 138 mmol/L (136-145)
[2022-03-30] MEDS: Gabapentin 300 MG CAP PO SCH ×3 (09:09→14:29)
[2022-03-30] MEDS: tiZANidine HCl 4 MG TAB PO SCH ×2 (09:10)
[2022-03-30] MEDS: Metoprolol Tartrate 25 MG TAB PO SCH ×2 (09:10→09:11)
[2022-03-30] MEDS: Lisinopril 2.5 MG TAB PO SCH (09:11)
[2022-03-30] MEDS: metFORMIN 500 MG TAB PO SCH (09:11)
[2022-03-30] MEDS: DULoxetine 30 MG CAP PO SCH (09:12)
[2022-03-30] MEDS: Amlodipine 5 MG TAB PO SCH (09:12)
[2022-03-30] MEDS: Modafinil 100 MG TAB PO SCH (10:12)
[2022-03-30] MEDS ORDERED: methylPREDNISolone Sod Succ 1 GM in Sodium Chloride 0.9% 250 ML 250 ML IVPB SCH (12:00)
[2022-03-30] MEDS: HumaLOG 300 UNITS/3 ML VIAL SC PRN (13:24)
[2022-03-30 15:51] VITALS: BP 140/82; TEMP 97.5
== END 2022-03-30 16:40 | disposition home or self-care (01) | DRG 59 ==
LOC: ERS 20:10 → NEURO 22:23
PROVIDERS: ADMIT Family Medicine; ATTEND Family Medicine
DX: G35 Multiple sclerosis (principal); R47.01 Aphasia; G36.0 Neuromyelitis optica [Devic]; Z20.822 Contact with and (suspected) exposure to COVID-19; I10 Essential (primary) hypertension; E28.2 Polycystic ovarian syndrome; F41.9 Anxiety disorder, unspecified; F32.A Depression, unspecified; D75.839 Thrombocytosis, unspecified; M51.37 Other intervertebral disc degeneration, lumbosacral region; E66.9 Obesity, unspecified; Z79.84 Long term (current) use of oral hypoglycemic drugs; Z79.899 Other long term (current) drug therapy; Z68.31 Body mass index [BMI] 31.0-31.9, adult; Z98.890 Other specified postprocedural states
CPT/HCPCS: 36415; 36416; 70450; 70553; 80048; 80053; 81003; 81015; 83036; 84703; 85025; 93005; 96365; 96366; A9579; J1815; J2930; J7050; U0003; U0005

== ENCOUNTER 2023-03-04 17:04 | Emergency (ER) | payer BC, OTHER ==
[~2023-03-04 17:04] MED LIST changes: +Iopamidol-370 76% 500 ML MDV (1 ML CHARGE) ONE; -Magnevist 469MG/ML 20 ML VIAL ONE
[2023-03-04 18:08] LABS: #Basophils 0.1 thou/uL (0.0-0.2); #Eosinphils 0.2 thou/uL (0.0-0.7); #Monocytes 0.4 thou/uL (0.11-0.59); #Neutrophils 2.2 thou/uL (1.40-6.50); %Eosinophils 3.3 % (0.0-10.0); %Lymphocytes 45.3 % (21.0-51.0); %Monocytes 8.2 % (0.0-10.0); %Neutrophils 42.2 % (42.0-75.0); Hemoglobin 13.6 g/dL (12.0-16.0); Mean Corpuscular HGB CONC 33.5 g/dL (32.0-36.0); Mean Corpuscular Hemoglobin 31.1 pg (27.0-31.0); Mean Corpuscular Volume 92.9 fl (78.0-98.0); Mean Platelet Volume 10.2 fL (7.4-10.4); Platelet Count 404 10x3/uL (130-400); RBC Distribution Width 12.2 % (11.5-14.5); Red Blood Cell (RBC) Count 4.37 mill/uL (4.20-5.40); White Blood Cell (WBC) Count 5.2 10x3/uL (4.8-10.8)
[2023-03-04 18:16] LABS: BHCG - Serum Negative (NEGATIVE); Pregs Control Background? CLEAR/WHITE (CLR/WHITE); Pregs Control Bar Appear? YES (CONTROL BAR)
[2023-03-04 18:41] LABS: ALT (SGPT) 13 U/L (8-55); AST (SGOT) 17 U/L (5-34); Albumin 4.3 g/dL (3.5-5.0); Alkaline Phosphatase 51 U/L (40-110); Anion Gap 16 mmol/L (10-20); BUN (Urea Nitrogen) 11 mg/dL (7.0-18.7); Bilirubin, Total 0.7 mg/dL (0.2-1.2); Calc. Creatinine Clearance 0 mL/min (70-130); Carbon Dioxide 19 mmol/L (22-29); Chloride 106 mmol/L (98-107); Estimated GFR 94; Globulin 2.5 g/dL (2.4-3.5); Glucose 87 mg/dL (70-105); Lipase 24 U/L (8-78); Protein, Total 6.8 g/dL (6.0-8.3); Sodium 137 mmol/L (136-145)
[2023-03-04 21:05] LABS: Troponin I Less than 0.010 ng/mL (< 0.028)
== END 2023-03-04 22:08 | disposition home or self-care (01) ==
LOC: ERS 17:04
DX: R06.00 Dyspnea, unspecified (principal); I10 Essential (primary) hypertension
CPT/HCPCS: 36415; 71045; 71275; 80053; 83690; 84443; 84484; 84703; 85025; 93005; 94760; Q9967